=== PATIENT | male | born 1945 | race Caucasian/White ===

== ENCOUNTER 2021-11-18 15:58 | Outpatient (REF) | payer MEDICARE, SELFPAY ==
[2021-11-18 21:20] LABS: Abs Immature Grans 0.01 10^3/uL (0.0-0.06); Absolute Basophil Count 0.01 10^3/uL (0.0-0.2); Absolute Eosinophil Count 0.13 10^3/uL (0.0-0.7); Absolute Lymphocyte Count 1.34 10^3/uL (1.2-3.4); Absolute Neutrophil Count 4.07 10^3/uL (1.2-6.7); Basophils % 0.2; Eosinophils % 2.1; HCT 38.2 % (40.0-50.0); HGB 12.1 g/dL (13.5-17.5); Immature Grans % 0.2; Lymphocytes % 21.8; MCH 30.6 pg (27.0-33.0); MCHC 31.7 % (32.0-36.0); MCV 96.7 fL (80-95); MPV 10.6 fL (8.0-11.0); Monocytes % 9.7; Nucleated RBC 0 %; Platelet Count 190 10^3/uL (130-400); RBC 3.95 10^6/uL (4.36-5.78); RDW 12.2 % (11.8-14.1); RDW-SD 43.2 fL; WBC 6.16 10^3/uL (4.4-10.8)
[2021-11-18 21:30] LABS: ALT 26 U/L (16-63); AST 21 U/L (15-37); Albumin 4.1 g/dL (3.4-5.0); Alkaline Phosphatase 75 U/L (46-116); Anion Gap 5.9 mmol/L (3-11); BUN 16 mg/dL (7-18); Bilirubin, Total 0.3 mg/dL (0.2-1.0); CO2 28.1 mmol/L (21.0-32.0); Calcium 9.4 mg/dL (8.5-10.1); Calculated LDL 136 mg/dL (<100); Chloride 102 mmol/L (98-107); Cholesterol 230 mg/dL (<200); Glucose 106 mg/dL (74-106); HDL Cholesterol 79 mg/dL (40-60); Potassium 4.4 mmol/L (3.5-5.1); Sodium 136 mmol/L (136-145); Total Protein 7.5 g/dL (6.4-8.2); Triglyceride 78 mg/dL (<150)
== END 2021-11-18 15:59 | disposition home or self-care (01) ==
LOC: NCHCN 15:58
PROVIDERS: Visit Provider Nurse Practitioner Family
DX: K62.5 Hemorrhage of anus and rectum (principal); R03.0 Elevated blood-pressure reading, without diagnosis of hypertension; Z13.220 Encounter for screening for lipoid disorders
CPT/HCPCS: 80053; 80061; 85025

== ENCOUNTER 2021-11-30 10:43 | Outpatient (REF) | payer MEDICARE, SELFPAY ==
[2021-11-30 21:01] LABS: Reticulocyte 0.9 % (0.5-2.4)
[2021-11-30 21:14] LABS: Iron 68 ug/dL (65-175); Total Iron Binding Capacity 411 ug/dL (250-450); Transferrin Sat 17 % (20-55)
[2021-11-30 21:40] LABS: Ferritin 15 ng/mL (26-388); TSH (W/Ref FT4) 1.05 uIU/mL (0.36-3.74); Vitamin B12 426 pg/mL (193-986)
[2021-11-30 22:03] LABS: Folate > 20.0 ng/mL (8.6-20.0)
== END 2021-11-30 10:44 | disposition home or self-care (01) ==
LOC: NCHCN 10:43
PROVIDERS: Visit Provider Nurse Practitioner Family
DX: D64.9 Anemia, unspecified (principal)
CPT/HCPCS: 82607; 82728; 82746; 83540; 83550; 84443; 85045

== ENCOUNTER 2022-02-26 16:11 | Outpatient (REF) | payer MEDICARE, SELFPAY ==
[2022-02-26 19:17] LABS: Abs Immature Grans 0.01 10^3/uL (0.0-0.06); Absolute Basophil Count 0.02 10^3/uL (0.0-0.2); Absolute Eosinophil Count 0.07 10^3/uL (0.0-0.7); Absolute Lymphocyte Count 1.34 10^3/uL (1.2-3.4); Absolute Monocyte Count 0.45 10^3/uL (0.1-0.8); Absolute Neutrophil Count 3.19 10^3/uL (1.2-6.7); Basophils % 0.4; Eosinophils % 1.4; HCT 35.7 % (40.0-50.0); Immature Grans % 0.2; Lymphocytes % 26.4; MCH 31.9 pg (27.0-33.0); MCHC 33.6 % (32.0-36.0); MCV 94.9 fL (80-95); MPV 10.2 fL (8.0-11.0); Monocytes % 8.9; Neutrophils % 62.7; Platelet Count 212 10^3/uL (130-400); RBC 3.76 10^6/uL (4.36-5.78); RDW 13.4 % (11.8-14.1); RDW-SD 47.5 fL; WBC 5.08 10^3/uL (4.4-10.8)
[2022-02-26 19:40] LABS: Ferritin 59 ng/mL (26-388)
== END 2022-02-26 16:12 | disposition home or self-care (01) ==
LOC: NCHCN 16:11
PROVIDERS: Visit Provider Nurse Practitioner Family
DX: D64.9 Anemia, unspecified (principal)
CPT/HCPCS: 82728; 85025

== ENCOUNTER 2022-11-30 17:56 | Outpatient (REF) | payer MEDICARE, SELFPAY ==
[2022-11-30 18:39] LABS: HCT 37.5 % (40.0-50.0); HGB 12.8 g/dL (13.5-17.5); MCH 32.8 pg (27.0-33.0); MCHC 34.1 % (32.0-36.0); MCV 96 fL (80-95); MPV 10.9 fL (8.0-11.0); Platelet Count 185 10^3/uL (130-400); RDW 12.6 % (11.8-14.1); RDW-SD 44.6 fL; WBC 5.38 10^3/uL (4.4-10.8)
== END 2022-11-30 17:57 | disposition home or self-care (01) ==
LOC: NCHCN 17:56
PROVIDERS: PCP Nurse Practitioner Family; Visit Provider Nurse Practitioner Family
DX: D64.9 Anemia, unspecified (principal)
CPT/HCPCS: 85027

== ENCOUNTER 2023-07-12 13:47 | Outpatient (REF) | payer MEDICARE, SELFPAY ==
[2023-07-12 19:10] LABS: Bilirubin Negative (Negative); Blood Trace-intact (Negative); Clarity Clear (Clear); Glucose Negative (Negative); Ketones Negative (Negative); Leukocyte Esterase Negative (Negative); Nitrite Negative (Negative); Urobilinogen 0.2 mg/dL (Up to 0.2); pH 6.5 (5-8)
[2023-07-12 19:27] LABS: Bacteria Negative HPF (Negative); C & S Indicated? No; Casts Negative LPF (Negative); Crystals Negative HPF (Negative); Epithelial Cells Rare HPF (Negative); Mucus Negative (Negative); RBC 0-2 HPF (0-2); WBC Negative HPF (0-5)
[2023-07-12 19:38] LABS: Anion Gap 7.8 mmol/L (3-11); BUN 13 mg/dL (7-18); CO2 26.2 mmol/L (21.0-32.0); Calcium 9.4 mg/dL (8.5-10.1); Chloride 102 mmol/L (98-107); Estimated GFR 77.04 (mL/min/1.73m2); Glucose 107 mg/dL (74-106); Potassium 4.4 mmol/L (3.5-5.1); Sodium 136 mmol/L (136-145)
[2023-07-13 18:24] LABS: PSA, Screening 7.9 ng/mL (<=6.5)
== END 2023-07-12 13:48 | disposition home or self-care (01) ==
LOC: NCHCN 13:47
PROVIDERS: PCP Nurse Practitioner Family; Visit Provider Nurse Practitioner Family
DX: R35.0 Frequency of micturition (principal); Z12.5 Encounter for screening for malignant neoplasm of prostate
CPT/HCPCS: 80048; 84153; 81003; 81015

== ENCOUNTER 2024-05-23 12:26 | Outpatient (REF) | payer MEDICARE, SELFPAY ==
--- NOTE | 2024-05-23 11:30 | SKI_PTH ---
PATIENT: Dariel Summers LOC: [facility] U#:[id number] AGE/SX: 78/M ROOM: RE05/23/[address]: Kat Ochoa : 1945 BED: DIS: 05/23/2024 SPEC #: [id number] RECD: 05/23/24 16:56 STATUS: DEVIN REQ #: [id number] GAETANO: 05/23/24 11:[address]: Kat Ochoa DEPT: Surgical Specimen RECD BY: Esmer Urbina ENTERED: 05/23/24 16:56 SP TYPE: KB CHAU DR: Safia Lewis Tissues: 1 - SKIN BIOPSY(SHAVE/PUNCH) Procedures: SKIN LEVEL 4 Comments: [id number]
== END 2024-05-23 12:27 | disposition home or self-care (01) ==
LOC: LBN 12:26
PROVIDERS: PCP Nurse Practitioner Family; Visit Provider Registered Nurse Maternal Newborn
DX: H93.91 Unspecified disorder of right ear (principal)
CPT/HCPCS: 88305

== ENCOUNTER 2024-06-01 10:51 | Day surgery (SDC) | payer MEDICARE, SELFPAY ==
[2024-06-01 12:31] VITALS: BP 146/74; PULSE 70; RESP 18; TEMP 36.6; O2SAT 99
[2024-06-01] MEDS: Tropicam./Phenyleph. (1/2.5%) 5 ML BTL OD ×3 (12:57→13:08)
--- NOTE | 2024-06-01 13:11 | ANES.PREOP_ITS ---
General Info Date of Service Date Performed: 06/01/24 Height: 5 ft 7 in Weight: 71.9 kg Body Mass Index (BMI): 24.8 Surgical Procedure: Operation Date: 06/01/24 14:40 Proposed Procedure Side Surgeon p Cataract Extraction with IOL Implant Right Aryan Fox MD Meds Allergies and Home Medications Allergies Allergy/AdvReac Type Severity Reaction Status Date / Time Penicillins Allergy unknown Verified 06/01/24 12:25 seasonal allergies Allergy Unknown Uncoded 06/01/24 12:25 Home Medication ?Medication ?Instructions ?Recorded omeprazole 20 mg capsule,delayed 20 mg PO DAILY 04/30/24 release tamsulosin 0.4 mg capsule 0.4 mg PO DAILY 04/30/24 diclofenac sodium 1 % topical gel 2 g topical BID PRN 05/23/24 fluorouracil 5 % topical cream 1 applic topical BID 3 weeks #40 05/28/24 (Efudex) grams aspirin 325 mg capsule 325 mg PO DAILY 06/01/24 Current Visit Medications: Current Medications Generic Name Dose Route Start Last Admin Trade Name Freq PRN Reason Stop Dose Admin Acetaminophen 1,000 mg 06/01/24 06:00 Acetaminophen 500 Mg Tab PO 07/01/24 05:59 Q4H PRN PRN Balanced Salt Solution 500 ml 06/01/24 06:00 Balanced Salt Soln.-Plus 500 Ml Bag OP 07/01/24 05:59 DIRECTED [facility], 1928–1983 Miscellaneous Medication 0 ml 06/01/24 06:00 Prednisolone 1%, Moxifloxacin 0.5%, Bromfenac 0.09% 5ml Btl OD 07/01/24 05:59 DIRECTED LYLE Miscellaneous Medication 0 ml 06/01/24 06:00 06/01/24 13:08 Tropicam./Phenyleph. 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 Acute H90.A32 Nasal septal perforation Acute J34.89 Medical History Medical History Disorder of skin or subcutaneous tissue Visual disturbance Suppurative arthritis Hemorrhage of rectum and anus Disorder of ear Esophagitis Lower urinary tract symptoms due to benign prostatic hyperplasia History of colitis Lesion of skin of left ear Influenza due to neda influenza virus Elevated prostate specific antigen (PSA) Increased frequency of urination Cough Pruritic rash Noninfectious gastroenteritis Bilateral cataracts Onychomycosis of toenail Erosive esophagitis Malaise and fatigue Edema Electrolyte and fluid disorders not elsewhere classified Anemia Pyogenic arthritis involving shoulder region Elevated sed rate (elev SR) Arthritis of left hip Bitten by dog, initial encounter Pain in right hand Rectal bleeding Elevated blood pressure reading without diagnosis of hypertension Pain of right hip joint Left ear impacted cerumen Hyperlipidemia Lesion of skin of nose Other esophagitis with bleeding Surgical History Surgical History History of back surgery H/O sinus surgery 1977 H/O shoulder surgery 2011 left shoulder for staph infection Tobacco Smoking/Tobacco Use Status: Never Alcohol Alcohol Intake: current Alcohol intake frequency: a few times a week Alcohol type: beer Substance Use Substance use type: does not use Details: alcohol: t-1, one Vital Signs and Lab Results Vital Signs Most Recent Vital Signs in EMR: Most Recent Vital Signs Temp Pulse Resp BP Pulse Ox 36.6 C 70 18 146/74 H 99 06/01/24 12:31 06/01/24 12:31 06/01/24 12:31 06/01/24 12:31 06/01/24 12:31 Lab Results Blood Type / Crossmatch: No Data to Display Complete Blood Count: No Data to Display Complete Metabolic Panel: No Data to Display Liver Function Panel: No Data to Display Coagulation Panel: No Data to Display Cardiac Panel: No Data to Display Arterial Blood Gas: No Data to Display Venous Blood Gas: No Data to Display Pancreas Panel: No Data to Display Thyroid Panel: No Data to Display Infectious Disease: No Data to Display Blood Cultures: No Data to Display Toxicology Panel: No Data to Display Anesthesia Assessment and Plan Anesthesia History Personal History: No History of Anesthesia Complications Family History: No Family History of Anesthesia Complications Exercise Tolerance Exercise Tolerance: Metabolic Equivalents>4 Pertinent Negatives Pertinent Negatives: No Symptoms of GERD Cardiac & Pulmonary Exam Cardiac Exam: Normal S1/S2 Heart Sounds and Heart Murmur Present Pulmonary Exam: Clear Bilateral Breath Sounds Implantable Cardiac Device Does patient have a Pacemaker or an ICD?: No Airway Exam Known Difficult Airway: No Mallampati Class: 2 Mouth Opening: Normal (> 3cm) Thyromental Distance: Greater than 3 cm Neck Range of Motion: Full ROM Neck Circumference: Normal Teeth Condition: Normal Dentition ASA Classification ASA Score: ASA 3 Emergency Case?: No NPO Status NPO Status: NPO Clears >2 hours, Solids >8 hours Anesthesia Plan Resuscitation Status: Full Code Anesthesia Technique: MAC Anesthesia Airway Planned: Natural Airway Monitors Used: Standard Monitors Preoperative Comments:: Pt. was found to have new heart murmur, scheduled for echo in June by PCP. he is very active, was recently digging pond and developed left lateral chest discomfort/pressure, that lasted a few minutes and subsided with rest. No associated symptoms. We discussed possible but rare chance of increased cardiac risk to include [place], pt. wishes to proceed with with cataract surgery today understanding risk. I did advise to seek 911 or ED if this continues or does not improve after a few minutes and contact PCP to make them aware.
[2024-06-01 13:15] VITALS: BMI 24.8
[2024-06-01] MEDS: Tetracaine 0.5% 4 ML BTL OD (13:52)
[2024-06-01] MEDS: Povidone-Iodine Ophth 30 ML BTL (13:53)
[2024-06-01] MEDS: Balanced Salt Soln.-PLUS 500 ML BAG OP (13:58)
[2024-06-01] MEDS: Duovisc Viscoelastic System EACH 1 EACH (13:59)
[2024-06-01] MEDS: Lidocaine 1% Pres-Free 5 ML VIAL (13:59)
[2024-06-01] MEDS: Trypan Blue 0.06% 0.5 ML SYR (14:01)
[2024-06-01 14:34] VITALS: BP 153/83; PULSE 73; RESP 18; TEMP 36.5; O2SAT 99
--- NOTE | 2024-06-01 14:37 | ROE_ITS ---
Date of service: 06/01/24 Time of Service: 14:38 Operative Note Operative Note DATE OF PROCEDURE: 06/01/24 PRE-OP DIAGNOSIS: Dense nuclear cataract, right eye Poorly dilating pupil, right eye POST-OP DIAGNOSIS: same PROCEDURE: 1. Cataract extraction by phacoemulsification with intraocular lens implantation, right eye, with pupillary expansion device SURGEON: Aryan Fox ANESTHESIA TYPE: Local By Surgeon and MAC Refer to Anesthesia Record PATHOLOGY: none sent COMPLICATIONS: None Patient was transported to: same day Patient's condition: stable Implants: Bunny Clareon [id number] Indications: Progressive decreased vision due to cataract, right eye, with poorly dilating pupil Procedure Description: CATARACT SURGERY OPERATIVE REPORT PREOPERATIVE DIAGNOSIS: 1. Dense nuclear cataract, right eye 2. Poorly dilating pupil, right eye POSTOPERATIVE DIAGNOSIS: Same OPERATION: 1. Cataract extraction using phacoemulsification with posterior chamber intraocular lens implant, right eye. 2. Pupillary dilation and iris stabilization using Malyugin Ring IOL: IOL Grinding Wheel Operator/Model: Bunny Clareon [id number] IOL Power: + 28.5 diopters IOL Serial Number: [id number] Optic Diameter: 6.0mm Haptic/Overall Diameter: 13.0mm PHACO INFO: Bunny M&D ANTIQUES & CONSIGNMENTurion Vision System with OZil and Active Fluidics Cumulative Dispersed Energy (CDE): 15.4 to seconds SURGEON: Aryan Fox MD, [place] ANESTHESIA: Monitored Anesthesia Care (MAC), with local sub-tenon's anesthetic infiltration COMPLICATIONS: None SPECIMENS: None INDICATIONS FOR PROCEDURE: The patient is a 78-year-old male with 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 He has developed a dense nuclear cataract in the right eye and desires cataract surgery and attempt to improve and maximize his vision. Aqueous depth is 1.74 mm with a poorly dilating pupil. The option of cataract surgery was offered to the patient and he wished to proceed. See office notes for detailed information. PROCEDURE: The correct surgical eye was identified and marked as the right eye and the pupil was dilated in the preoperative area using mydriatics and cycloplegics. The dilated pupil size was 3.0 mm. The patient was brought to the operating room where cardiopulmonary monitoring was instituted and surgical time-out was performed, confirming the correct operative eye and IOL power. Topical anesthesia was administered and ophthalmic povidone-iodine 5% was instilled into the conjunctival fornices. Tthe adolfo-ocular area was prepped wit h Betadine 10% solution and draped in the usual sterile fashion for intraocular surgery, including an aperture drape. A Tegaderm transparent film dressing was cut in half and used to cover the lashes and lid margins. Care was taken to sequester the lashes and lid margins under the Tegaderm dressing. A lid speculum was placed between the lids of the operative eye and the Bunny LuxOR Revalia operating microscope was maneuvered into position. Dominik scissors were then used to make a conjunctival buttonhole approximately 6mm posterior to the limbus in the inferonasal quadrant. Blunt dissection was carried out to expose bare sclera, and a blunt-tipped sub-tenon?s anesthesia cannula was introduced and passed posteriorly along the globe where non- preserved plain lidocaine was injected into posterior sub-Tenon?s space. A sideport knife was used to make a paracentesis port. Intraocular phenylephrine/lidocaine was injected in the anterior chamber. The cannula was then used to break the extensive posterior synechia from the 1:00 to the 7 o'clock position. Dilated pupil size was approximately 4 mm. VisionBlue was then injected into the anterior chamber and allowed to sit for 30 seconds and then irrigated out with balanced salt solution. The anterior chamber was filled with viscoelastic. Viscoat was used initially. They dispersive viscoelastic deep in the chambers sufficiently to place a pupillary expansion device. A keratome knife was used to construct a 2-plane near-clear corneal tunnel extending 2.0mm into clear cornea. A 6.25 mm Malyugin Ring was then inserted into the pupillary space and engaged with the Kuglen hook. A flap was raised on the anterior capsule and capsulorhexis forceps were used to complete a continuous curvilinear capsulorhexis of 5.0 mm. Balanced salt solution was then used to perform cortical cleaving hydrodissection and nuclear hydrodelineation until the lens could be freely rotated within the capsular bag. The lens nucleus was then disassembled and removed within the capsular bag and iris plane using phacoemulsification. A deep trench was sculpted into the central nucleus which was then cracked in half using nucleus splitters. Additional dispersive viscoelastic was injected into the anterior chamber and each nuclear half was then subtyped into multiple small fragments and carefully removed at the iris plane. Residual cortical material was removed using the irrigation/aspiration handpiece. The posterior capsule was carefully polished to remove as much residual lens epithelial cells as safely possible. The capsular bag was then inflated and the anterior chamber deepened with viscoelastic. The lens implant described above was inserted into the capsular bag using the Bunny Autonome pre-loaded injector. A Kuglen hook was used to dial the IOL into position. The Malyugin Ring was removed in the reverse order of its insertion. Residual viscoelastic was then removed first from posterior to the IOL, then from the anterior chamber using the I/A handpiece. The lens implant was noted to center nicely within the capsular bag. The incisions were stromally hydrated, and the anterior chamber was reformed using BSS. Then 0.5cc of moxifloxacin 1.0mg/ml were injected into the capsular bag and anterior chamber. The incisions were checked with a Weck spear and found to be secure. Several drops of ophthalmic povidone-iodine 5% were then applied to the eye followed by two drops of Imprimis combination prednisolone/moxifloxacin/nepafenac solution. The drapes were removed and a clear plastic protective eye shield was placed over the eye. The patient was then returned to Same Day Surgery in stable condition.
--- NOTE | 2024-06-01 14:37 | W.PM.DSUDISC ---
Date of service: 06/01/24 Time of Service: 14:37 Discharge Plan Disposition Patient Disposition: Home Discharge Details Attending Provider: Aryan Fox Primary Care Provider: Haylie Lewis Home Meds and New Rx's Prescriptions: No Action omeprazole 20 mg capsule,delayed release(DR/EC) 20 mg PO DAILY tamsulosin 0.4 mg capsule 0.4 mg PO DAILY diclofenac sodium 1 % gel 2 g topical BID PRN Rx Instructions: shoulders and lumbar spine fluorouracil [Efudex] 5 % cream 1 applic topical BID 21 Days Qty: 40 0RF Patient Comments: R ear aspirin 325 mg capsule 325 mg PO DAILY Discharge Instructions Stand Alone Forms: DSU Post-Op Cataract, Alejandro Monet (DSU) Discharge Orders Discharge Orders: Discharge Order (Routine); Ordered 06/01/24 Ordered By: Aryan Fox DS: Diagnosis Discharge Diagnosis (1) Nuclear age-related cataract, right eye: Status: Resolved
--- NOTE | 2024-06-01 15:09 | W.ANESPOSTOP ---
Postoperative Evaluation Date, Time and Location Date Performed: 06/01/24 Time Performed: 14:40 Patient Location: Day Surgery Unit Vital Signs Most Recent Imported Vital Signs: Most Recent Vital Signs Temp Pulse Resp BP Pulse Ox 36.5 C 73 18 153/83 H 99 06/01/24 14:34 06/01/24 14:34 06/01/24 14:34 06/01/24 14:34 06/01/24 14:34 Pain Score Most Recent Pain Score: Most Recent Pain Score Pain Level 0 06/01/24 14:34 Assessment Mental Status: Awake (Alert & Oriented to Patient Baseline) Airway and Respiratory Function: Patent airway with normal (patient baseline) respiratory exam Cardiovascular Function: Hemodynamically Stable Hydration Status: Adequately Hydrated Nausea & Vomiting: No Nausea or Vomiting Pain: Pt. Denies Any Pain Peripheral Nerve Block: Patient did not receive a nerve block
== END 2024-06-01 15:01 | disposition home or self-care (01) ==
LOC: SUR 10:52
PROVIDERS: PCP Nurse Practitioner Family; Visit Provider Ophthalmology
PROC: (CPT 66982; principal; 2024-06-01 14:30)
DX: H25.11 Age-related nuclear cataract, right eye (principal)
CPT/HCPCS: 66982; 00123; V2632; J2003

== ENCOUNTER 2024-06-15 10:29 | Day surgery (SDC) | payer MEDICARE, SELFPAY ==
[2024-06-15] MEDS: Tropicam./Phenyleph. (1/2.5%) 5 ML BTL ×3 (11:02→11:13)
[2024-06-15 11:03] VITALS: BP 161/63; PULSE 61; RESP 18; TEMP 36.4; O2SAT 99
--- NOTE | 2024-06-15 11:22 | ANES.PREOP_ITS ---
General Info Date of Service Date Performed: 06/15/24 Height: 5 ft 7 in Weight: 72.2 kg Body Mass Index (BMI): 24.9 Surgical Procedure: Operation Date: 06/15/24 13:40 Proposed Procedure Side Surgeon p Cataract Extraction with IOL Implant Left Aryan Fox MD Meds Allergies and Home Medications Allergies Allergy/AdvReac Type Severity Reaction Status Date / Time Penicillins Allergy unknown Verified 06/15/24 10:55 seasonal allergies Allergy Unknown Uncoded 06/15/24 10:55 Home Medication ?Medication ?Instructions ?Recorded omeprazole 20 mg capsule,delayed 20 mg PO DAILY 04/30/24 release tamsulosin 0.4 mg capsule 0.4 mg PO DAILY 04/30/24 diclofenac sodium 1 % topical gel 2 g topical BID PRN 05/23/24 fluorouracil 5 % topical cream 1 applic topical BID 3 weeks #40 05/28/24 (Efudex) grams aspirin 325 mg capsule 325 mg PO DAILY 06/01/24 Current Visit Medications: Current Medications Generic Name Dose Route Start Last Admin Trade Name Freq PRN Reason Stop Dose Admin Acetaminophen 1,000 mg 06/15/24 06:00 Acetaminophen 500 Mg Tab PO 07/15/24 05:59 Q4H PRN PRN Balanced Salt Solution 500 ml 06/15/24 06:00 Balanced Salt Soln.-Plus 500 Ml Bag OP 07/15/24 05:59 DIRECTED [facility] Miscellaneous Medication 0 ml 06/15/24 06:00 Prednisolone 1%, Moxifloxacin 0.5%, Bromfenac 0.09% 5.6ml Btl OS 07/15/24 05:59 DIRECTED [facility] Miscellaneous Medication 0 ml 06/15/24 06:00 Tropicam./Phenyleph. 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 Acute H90.A32 Nasal septal perforation Acute J34.89 Medical History Medical History Disorder of skin or subcutaneous tissue Visual disturbance Suppurative arthritis Hemorrhage of rectum and anus Disorder of ear Esophagitis Lower urinary tract symptoms due to benign prostatic hyperplasia History of colitis Lesion of skin of left ear Influenza due to neda influenza virus Elevated prostate specific antigen (PSA) Increased frequency of urination Cough Pruritic rash Noninfectious gastroenteritis Bilateral cataracts Onychomycosis of toenail Erosive esophagitis Malaise and fatigue Edema Electrolyte and fluid disorders not elsewhere classified Anemia Pyogenic arthritis involving shoulder region Elevated sed rate (elev SR) Arthritis of left hip Bitten by dog, initial encounter Pain in right hand Rectal bleeding Elevated blood pressure reading without diagnosis of hypertension Pain of right hip joint Left ear impacted cerumen Hyperlipidemia Lesion of skin of nose Other esophagitis with bleeding Surgical History Surgical History History of back surgery H/O sinus surgery 1977 H/O shoulder surgery 2011 left shoulder for staph infection Tobacco Smoking/Tobacco Use Status: Never Alcohol Alcohol Intake: current Alcohol intake frequency: a few times a week Alcohol type: beer Substance Use Substance use type: does not use Vital Signs and Lab Results Vital Signs Most Recent Vital Signs in EMR: Most Recent Vital Signs Temp Pulse Resp BP Pulse Ox 36.4 C L 61 18 161/63 H 99 06/15/24 11:03 06/15/24 11:03 06/15/24 11:03 06/15/24 11:03 06/15/24 11:03 Lab Results Blood Type / Crossmatch: No Data to Display Complete Blood Count: No Data to Display Complete Metabolic Panel: No Data to Display Liver Function Panel: No Data to Display Coagulation Panel: No Data to Display Cardiac Panel: No Data to Display Arterial Blood Gas: No Data to Display Venous Blood Gas: No Data to Display Pancreas Panel: No Data to Display Thyroid Panel: No Data to Display Infectious Disease: No Data to Display Blood Cultures: No Data to Display Toxicology Panel: No Data to Display Anesthesia Assessment and Plan Anesthesia History Personal History: No History of Anesthesia Complications Family History: No Family History of Anesthesia Complications Exercise Tolerance Exercise Tolerance: Metabolic Equivalents>4 Cardiac & Pulmonary Exam Cardiac Exam: Normal S1/S2 Heart Sounds Pulmonary Exam: Clear Bilateral Breath Sounds Implantable Cardiac Device Does patient have a Pacemaker or an ICD?: No Airway Exam Known Difficult Airway: No Mallampati Class: 2 Mouth Opening: Normal (> 3cm) Thyromental Distance: Greater than 3 cm Neck Range of Motion: Full ROM Neck Circumference: Normal Teeth Condition: Normal Dentition ASA Classification ASA Score: ASA 3 Emergency Case?: No NPO Status NPO Status: NPO Clears >2 hours, Solids >8 hours Anesthesia Plan Resuscitation Status: Full Code Anesthesia Technique: MAC Anesthesia Airway Planned: Natural Airway Monitors Used: Standard Monitors Preoperative Comments:: New murmur noted prior to first cataract, patient understands slight increase in very rare cardiac risk, echo to be done yet this month.
[2024-06-15 11:24] VITALS: BMI 24.9
[2024-06-15] MEDS: Lidocaine 1% Pres-Free 5 ML VIAL (12:38)
[2024-06-15] MEDS: Duovisc Viscoelastic System EACH 1 EACH (12:39)
[2024-06-15] MEDS: Povidone-Iodine Ophth 30 ML BTL (12:39)
[2024-06-15] MEDS: Balanced Salt Soln.-PLUS 500 ML BAG OP (12:40)
[2024-06-15] MEDS: Prednisolone 1%, Moxifloxacin 0.5%, Bromfenac 0.09% 5.6ML BTL OS (12:41)
[2024-06-15] MEDS: Tetracaine 0.5% 4 ML BTL OS (12:41)
[2024-06-15 13:03] VITALS: BP 134/70; PULSE 65; RESP 20; TEMP 36.6; O2SAT 99
--- NOTE | 2024-06-15 13:03 | ROE_ITS ---
Date of service: 06/15/24 Time of Service: 13:03 Operative Note Operative Note DATE OF PROCEDURE: 06/15/24 PRE-OP DIAGNOSIS: Nuclear cataract, left eye POST-OP DIAGNOSIS: same PROCEDURE: Cataract extraction using phacoemulsification with intraocular lens implant, left eye SURGEON: Aryan Fox ANESTHESIA TYPE: Local By Surgeon and MAC Refer to Anesthesia Record PATHOLOGY: none sent COMPLICATIONS: None Patient was transported to: same day Patient's condition: stable Implants: Bunny Clareon [id number] Indications: Progressive decreased vision due to cataract, left eye Procedure Description: CATARACT SURGERY OPERATIVE REPORT PREOPERATIVE DIAGNOSIS: Nuclear cataract, left eye POSTOPERATIVE DIAGNOSIS: Same OPERATION: Cataract extraction using phacoemulsification with posterior chamber intraocular lens implant, left eye. IOL: IOL Asp Web Developer/Model: Bunny Clareon [id number] IOL Power: + 29.5 diopters IOL Serial Number: [id number] Optic Diameter: 6.0mm Haptic/Overall Diameter: 13.0mm PHACO INFO: Bunny Freight Connectionurion Vision System with OZil and Active Fluidics Cumulative Dispersed Energy (CDE): 8.55 seconds SURGEON: Aryan Fox MD, [place] ANESTHESIA: Monitored Anesthesia Care (MAC), with local sub-tenon's anesthetic infiltration COMPLICATIONS: None SPECIMENS: None INDICATIONS FOR PROCEDURE: The patient is a 78-year-old female with history of narrow anterior chamber angles and shallow anterior chambers who is undergone previous laser peripheral iridotomy. 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 He has already undergone cataract surgery in the right eye and is doing well postoperatively. He now presents for cataract surgery in the left eye. See office notes for detailed information. PROCEDURE: The correct surgical eye was identified and marked as the left eye and the pupil was dilated in the preoperative area using mydriatics and cycloplegics. The dilated pupil size was 5.0 mm. The patient elected to proceed without oral sedation. The patient was brought to the operating room where cardiopulmonary monitoring was instituted and surgical time-out was performed, confirming the correct operative eye and IOL power. Topical anesthesia was administered and ophthalmic povidone-iodine 5% was instilled into the conjunctival fornices. The adolfo-ocular area was prepped with Betadine 10% solution and draped in the usual sterile fashion for intraocular surgery, including an aperture drape. A Tegaderm transparent film dressing was cut in half and used to cover the lashes and lid margins. Care was taken to sequester the lashes and lid margins under the Tegaderm dressing. A lid speculum was placed between the lids of the operative eye and the Bunny LuxOR Revalia operating microscope was maneuvered into position. Dominik scissors were then used to make a conjunctival buttonhole approximately 6mm posterior to the limbus in the inferonasal quadrant. Blunt dissection was carried out to expose bare sclera, and a blunt-tipped sub-tenon?s anesthesia cannula was introduced and passed posteriorly along the globe where non- preserved plain lidocaine was injected into posterior sub-Tenon?s space. A sideport knife was used to make a paracentesis port. Intraocular phenylephrine/lidocaine was injected into the anterior chamber. The anterior chamber was then filled with viscoelastic. The anterior chamber was noted to be very shallow, approximately 1.7 mm. A keratome knife was used construct a two-plane clear corneal tunnel extending 2.0mm into clear cornea. A flap was raised on the anterior capsule and capsulorhexis forceps were used to complete a continuous curvilinear capsulorhexis of 5.0 mm. Balanced salt solution was then used to perform cortical cleaving hydrodissection and nuclear hydrodelineation until the lens could be freely rotated within the capsular bag. The lens nucleus was then disassembled and removed within the capsular bag and iris plane using phacoemulsification. Resid ual cortical material was removed using the irrigation/aspiration handpiece. The posterior capsule was carefully polished to remove as much residual lens epithelial cells as safely possible. The capsular bag was then inflated and the anterior chamber deepened with viscoelastic. The lens implant described above was inserted into the capsular bag using the Bunny Autonome Injector. A Kuglen hook was used to dial the IOL into position. Residual viscoelastic was then removed first from posterior to the IOL, then from the anterior chamber using the I/A handpiece. The lens implant was noted to center nicely within the capsular bag. The incisions were stromally hydrated, and the anterior chamber was reformed using BSS. Then 0.5cc of moxifloxacin 1.0mg/ml were injected into the capsular bag and anterior chamber. The incisions were checked with a Weck spear and found to be secure. Several drops of ophthalmic povidone-iodine 5% were then applied to the eye followed by two drops of combination steroid/NSAID/antibiotic solution. The drapes were removed and a clear plastic protective eye shield was placed over the eye. The patient was then returned to [facility] in stable condition.
--- NOTE | 2024-06-15 13:03 | W.PM.DSUDISC ---
Date of service: 06/15/24 Time of Service: 13:03 Discharge Plan Disposition Patient Disposition: Home Discharge Details Attending Provider: Aryan Fox Primary Care Provider: Haylie Lewis Home Meds and New Rx's Prescriptions: No Action omeprazole 20 mg capsule,delayed release(DR/EC) 20 mg PO DAILY tamsulosin 0.4 mg capsule 0.4 mg PO DAILY diclofenac sodium 1 % gel 2 g topical BID PRN Rx Instructions: shoulders and lumbar spine fluorouracil [Efudex] 5 % cream 1 applic topical BID 21 Days Qty: 40 0RF Patient Comments: R ear aspirin 325 mg capsule 325 mg PO DAILY Discharge Instructions Stand Alone Forms: DSU Post-Op Cataract, Alejandro Monet (DSU) Discharge Orders Discharge Orders: Discharge Order (Routine); Ordered 06/15/24 Ordered By: Aryan Fox DS: Diagnosis Discharge Diagnosis (1) Nuclear age-related cataract, left eye: Status: Resolved
== END 2024-06-15 13:30 | disposition home or self-care (01) ==
LOC: SUR 10:29
PROVIDERS: PCP Nurse Practitioner Family; Visit Provider Ophthalmology
PROC: (CPT 66984; principal; 2024-06-15 13:30)
DX: H25.12 Age-related nuclear cataract, left eye (principal); Z98.41 Cataract extraction status, right eye
CPT/HCPCS: 66984; 00123; V2632; J2003

== ENCOUNTER 2024-10-08 15:56 | Outpatient (REF) | payer MEDICARE, SELFPAY ==
[2024-10-08 20:02] LABS: ALT 30 U/L (16-63); AST 29 U/L (15-37); Albumin 3.8 g/dL (3.4-5.0); Alkaline Phosphatase 61 U/L (46-116); Anion Gap 7.6 mmol/L (3-11); BUN 12 mg/dL (7-18); Bilirubin, Total 0.72 mg/dL (0.2-1.0); CO2 27.4 mmol/L (21.0-32.0); CREATININE 1.1 mg/dL (0.70-1.30); Calcium 9.5 mg/dL (8.5-10.1); Calculated LDL 54 mg/dL (<100); Chloride 105 mmol/L (98-107); Cholesterol 156 mg/dL (<200); Estimated GFR 68.29 (mL/min/1.73m2); Glucose 90 mg/dL (74-106); HDL Cholesterol 91 mg/dL (40-60); Potassium 4.5 mmol/L (3.5-5.1); Sodium 140 mmol/L (136-145); Total Protein 7.3 g/dL (6.4-8.2); Triglyceride 57 mg/dL (<150)
== END 2024-10-08 15:57 | disposition home or self-care (01) ==
LOC: NCHCN 15:56
PROVIDERS: PCP Nurse Practitioner Family; Visit Provider Nurse Practitioner Family
DX: I10 Essential (primary) hypertension (principal)
CPT/HCPCS: 80053; 80061